=== PATIENT | female | born 1950 | race Caucasian/White ===

== ENCOUNTER 2017-08-18 11:28 | Outpatient (CLI) | payer MEDICARE, OTHER | END 2017-08-18 11:29 | disposition home or self-care (01) | LOC: BICMAMMO 11:28 | PROVIDERS: ATTEND Obstetrics & Gynecology | DX: Z12.31 Encounter for screening mammogram for malignant neoplasm of breast (principal); N64.89 Other specified disorders of breast | CPT/HCPCS: 77063; 77067 ==

== ENCOUNTER 2017-08-25 10:04 | Outpatient (CLI) | payer MEDICARE, OTHER | END 2017-08-25 10:05 | disposition home or self-care (01) | LOC: BICMAMMO 10:04 | PROVIDERS: ATTEND Obstetrics & Gynecology | DX: N64.89 Other specified disorders of breast (principal) | CPT/HCPCS: 77065; G0279 ==

== ENCOUNTER 2017-10-01 15:12 | Outpatient (CLI) | payer MEDICARE, OTHER | END 2017-10-01 15:13 | disposition home or self-care (01) | LOC: BICRAD 15:12 | PROVIDERS: ATTEND Obstetrics & Gynecology | DX: R14.3 Flatulence (principal); R15.9 Full incontinence of feces | CPT/HCPCS: 74019 ==

== ENCOUNTER 2018-08-28 11:48 | Outpatient (CLI) | payer MEDICARE, OTHER ==
--- NOTE | 2018-08-28 12:47 | MMO ---
Bilateral MAMMO Bilat Screen [facility]. CLINICAL HISTORY: Patient is 68 years old and is seen for screening. The patient has no family history of breast cancer. The patient has no personal history of cancer. VIEWS: The views performed were: bilateral craniocaudal with tomosynthesis and bilateral mediolateral oblique with tomosynthesis. FILMS COMPARED: The present examination has been compared to prior imaging studies performed at [facility] on 08/14/2015, 08/14/2016, 08/18/2017 and 08/25/2017. MAMMOGRAM FINDINGS: There are scattered fibroglandular densities. There are stable benign appearing calcifications seen in both breasts. There are no suspicious masses, suspicious calcifications, or new areas of architectural distortion. IMPRESSION: THERE IS NO MAMMOGRAPHIC EVIDENCE OF MALIGNANCY. A ROUTINE FOLLOW-UP MAMMOGRAM IN 1 YEAR IS RECOMMENDED. THE RESULTS OF THIS EXAM WERE SENT TO THE PATIENT. ACR BI-RADS Category 2 - Benign finding MAMMOGRAPHY NOTE: 1. A negative mammogram report should not delay a biopsy if a dominant of clinically suspicious mass is present. 2. Approximately 10% to 15% of breast cancers are not detected by mammography. 3. Adenosis and dense breasts may obscure an underlying neoplasm.
== END 2018-08-28 11:49 | disposition home or self-care (01) ==
LOC: BICMAMMO 11:48
PROVIDERS: ATTEND Obstetrics & Gynecology
DX: Z12.31 Encounter for screening mammogram for malignant neoplasm of breast (principal)
CPT/HCPCS: 77063; 77067

== ENCOUNTER 2019-08-31 12:21 | Outpatient (CLI) | payer MEDICARE, OTHER ==
--- NOTE | 2019-08-31 13:52 | MMO ---
Bilateral MAMMO Bilat Screen [facility]. CLINICAL HISTORY: Patient is 69 years old and is seen for screening. The patient has no family history of breast cancer. The patient has no personal history of cancer. VIEWS: The views performed were: bilateral craniocaudal with tomosynthesis and bilateral mediolateral oblique with tomosynthesis. FILMS COMPARED: The present examination has been compared to prior imaging studies performed at [facility] on 08/14/2016, 08/18/2017, 08/25/2017 and 08/28/2018. This study has been interpreted with the assistance of computer-aided detection. MAMMOGRAM FINDINGS: There are scattered fibroglandular densities. There are stable benign appearing calcifications seen in both breasts. There are no suspicious masses, suspicious calcifications, or new areas of architectural distortion. IMPRESSION: THERE IS NO MAMMOGRAPHIC EVIDENCE OF MALIGNANCY. A ROUTINE FOLLOW-UP MAMMOGRAM IN 1 YEAR IS RECOMMENDED. THE RESULTS OF THIS EXAM WERE SENT TO THE PATIENT. ACR BI-RADS Category 2 - Benign finding MAMMOGRAPHY NOTE: 1. A negative mammogram report should not delay a biopsy if a dominant of clinically suspicious mass is present. 2. Approximately 10% to 15% of breast cancers are not detected by mammography. 3. Adenosis and dense breasts may obscure an underlying neoplasm. Reported by: CHACHA SAM MD Electonically Signed: [id number]
== END 2019-08-31 12:22 | disposition home or self-care (01) ==
LOC: BICMAMMO 12:21
PROVIDERS: ATTEND Obstetrics & Gynecology
DX: Z12.31 Encounter for screening mammogram for malignant neoplasm of breast (principal)
CPT/HCPCS: 77063; 77067

== ENCOUNTER 2020-09-05 09:41 | Outpatient (CLI) | payer MEDICARE, OTHER | END 2020-09-05 09:42 | disposition home or self-care (01) | LOC: BICMAMMO 09:41 | PROVIDERS: ATTEND Obstetrics & Gynecology | DX: Z12.31 Encounter for screening mammogram for malignant neoplasm of breast (principal) | CPT/HCPCS: 77063; 77067 ==

== ENCOUNTER 2021-09-06 12:55 | Outpatient (CLI) | payer MEDICARE, OTHER | END 2021-09-06 12:56 | disposition home or self-care (01) | LOC: BICMAMMO 12:55 | PROVIDERS: ATTEND Obstetrics & Gynecology | DX: Z12.31 Encounter for screening mammogram for malignant neoplasm of breast (principal); N64.89 Other specified disorders of breast | CPT/HCPCS: 77063; 77067 ==

== ENCOUNTER 2021-09-14 09:51 | Outpatient (CLI) | payer MEDICARE, OTHER | END 2021-09-14 09:52 | disposition home or self-care (01) | LOC: BICMAMMO 09:51 | PROVIDERS: ATTEND Obstetrics & Gynecology | DX: R92.2 Inconclusive mammogram (principal) | CPT/HCPCS: 76642; 77065; G0279 ==

== ENCOUNTER 2022-03-19 09:42 | Outpatient (CLI) | payer MEDICARE, OTHER | END 2022-03-19 09:43 | disposition home or self-care (01) | LOC: BICMAMMO 09:42 | PROVIDERS: ATTEND Obstetrics & Gynecology | DX: R92.8 Other abnormal and inconclusive findings on diagnostic imaging of breast (principal) | CPT/HCPCS: 76642; 77065; G0279 ==

== ENCOUNTER 2022-03-26 10:24 | Outpatient (CLI) | payer MEDICARE, OTHER | END 2022-03-26 10:25 | disposition home or self-care (01) | LOC: BICMAMMO 10:24 | PROVIDERS: ATTEND Family Medicine | DX: M85.88 Other specified disorders of bone density and structure, other site (principal) | CPT/HCPCS: 77080 ==

== ENCOUNTER 2023-02-14 14:18 | Outpatient (CLI) | payer MEDICARE, OTHER | END 2023-02-14 14:19 | disposition home or self-care (01) | LOC: BICMAMMO 14:18 | PROVIDERS: ATTEND Obstetrics & Gynecology | DX: R92.8 Other abnormal and inconclusive findings on diagnostic imaging of breast (principal); N64.89 Other specified disorders of breast | CPT/HCPCS: 76642; 77065; G0279 ==

== ENCOUNTER 2023-08-18 13:57 | Outpatient (CLI) | payer MEDICARE, OTHER | END 2023-08-18 13:58 | disposition home or self-care (01) | LOC: BICMAMMO 13:57 | PROVIDERS: ATTEND Obstetrics & Gynecology | DX: R92.8 Other abnormal and inconclusive findings on diagnostic imaging of breast (principal) | CPT/HCPCS: 76642; 77066; G0279 ==

== ENCOUNTER 2025-01-18 13:19 | Outpatient (CLI) | payer MEDICARE, OTHER ==
[2025-01-18 14:53] LABS: #Basophils Less than 0.03 10x3/uL (0.0-0.2); #Eosinophils 0.07 10x3/uL (0.0-0.7); #Monocytes 0.70 10x3/uL (0.11-0.59); #Neutrophils 5.04 10x3/uL (1.40-6.50); %Basophils 0.3 % (0.0-1.0); %Eosinophils 1.0 % (0.0-10.0); %Lymphocytes 15.9 % (21.0-51.0); %Monocytes 10.1 % (0.0-10.0); %Neutrophils 72.6 % (42.0-75.0); Hematocrit 41.2 % (36.0-47.0); Hemoglobin 13.2 g/dL (12.0-16.0); Mean Corpuscular Hemoglobin 29.9 pg (27.0-31.0); Mean Corpuscular Volume 93.4 fL (78.0-98.0); Platelet Count 171 10x3/uL (130-400); Red Blood Cell (RBC) Count 4.41 mill/uL (4.20-5.40); White Blood Cell (WBC) Count 6.94 10x3/uL (4.8-10.8)
[2025-01-18 15:07] LABS: INR-International Normal Ratio 1.1; Prothrombin Time 14.1 sec (12.0-14.7)
[2025-01-18 15:20] LABS: Anion Gap 14 mmol/L (10-20); BUN (Urea Nitrogen) 51 mg/dL (9.8-20.1); Calc. Creatinine Clearance 0 mL/min (70-130); Calcium 9.3 mg/dL (7.8-10.44); Carbon Dioxide 29 mmol/L (23-31); Chloride 101 mmol/L (98-107); Glucose 154 mg/dL (83-110); Potassium 4.2 mmol/L (3.5-5.1); Sodium 140 mmol/L (136-145)
== END 2025-01-18 13:20 | disposition home or self-care (01) ==
LOC: LABBT 13:19
PROVIDERS: ATTEND Orthopaedic Surgery Hand Surgery
DX: Z01.818 Encounter for other preprocedural examination (principal); M18.12 Unilateral primary osteoarthritis of first carpometacarpal joint, left hand
CPT/HCPCS: 80048; 85025; 85610; 87081; 93005; 93010

== ENCOUNTER 2025-01-21 09:09 | Day surgery (SDC) | payer MEDICARE, OTHER ==
[2025-01-18 13:34] VITALS: BMI 31.3
[2025-01-21] MEDS ORDERED: Ropivacaine 0.2% HCl/PF 20 ML ONE (12:34)
[2025-01-21] MEDS ORDERED: Ropivacaine 0.5% HCl/PF (150 MG/30 ML VIAL) ONE (12:34)
[2025-01-21] MEDS ORDERED: PROPOFOL 0 ML ONE (12:37)
[2025-01-21] MEDS ORDERED: Lidocaine 1% PF 5 ML VIAL ONE (12:37)
[2025-01-21] MEDS ORDERED: Ondansetron PF 4 MG/2 ML Vial ONE (12:37)
[2025-01-21] MEDS ORDERED: fentaNYL PF 100 MCG/2 ML SYRINGE ONE (12:37)
[2025-01-21] MEDS ORDERED: Bacitracin Zinc Ointment 30 gm TUBE ONE (12:38)
== END 2025-01-21 13:45 | disposition short-term general hospital (02) ==
LOC: SDC 09:09
PROVIDERS: ATTEND Orthopaedic Surgery Hand Surgery
DX: M18.12 Unilateral primary osteoarthritis of first carpometacarpal joint, left hand (principal); Z53.8 Procedure and treatment not carried out for other reasons; M77.8 Other enthesopathies, not elsewhere classified; I10 Essential (primary) hypertension; E11.9 Type 2 diabetes mellitus without complications; Z95.5 Presence of coronary angioplasty implant and graft; Z98.41 Cataract extraction status, right eye; Z98.42 Cataract extraction status, left eye; Z90.710 Acquired absence of both cervix and uterus; Z90.89 Acquired absence of other organs; Z88.0 Allergy status to penicillin; Z88.8 Allergy status to other drugs, medicaments and biological substances; Z79.84 Long term (current) use of oral hypoglycemic drugs; Z79.899 Other long term (current) drug therapy
CPT/HCPCS: J2795 ×2; J2405; J2704; J3010

== ENCOUNTER 2025-02-02 10:44 | Day surgery (SDC) | payer MEDICARE, OTHER ==
[2025-02-01 15:39] VITALS: BMI 30.9
[2025-02-02] MEDS ORDERED: Bacitracin Zinc Ointment 30 gm TUBE ONE (12:48)
[2025-02-02] MEDS ORDERED: Thrombin 5000 UNITS/5 ML VIAL ONE (12:48)
[2025-02-02] MEDS ORDERED: Ropivacaine 0.5% HCl/PF (150 MG/30 ML VIAL) ONE (13:10)
[2025-02-02] MEDS ORDERED: Ropivacaine 0.2% HCl/PF 20 ML ONE (13:10)
[2025-02-02] MEDS ORDERED: Vancomycin 1 GM/200 ML (FROZEN) BAG ONE (13:15)
[2025-02-02] MEDS ORDERED: Famotidine/PF 20 mg/2ml Vial ONE (13:33)
[2025-02-02] MEDS ORDERED: Lidocaine 1% PF 5 ML VIAL ONE (13:35)
[2025-02-02] MEDS ORDERED: fentaNYL PF 100 MCG/2 ML SYRINGE ONE (13:35)
[2025-02-02] MEDS ORDERED: SUCCINYLCHOLINE/SOD CL,ISO/PF 200 MG/10 ML SYRINGE FS ONE (13:36)
[2025-02-02] MEDS ORDERED: Glycopyrrolate 0.2 MG/ML 5 ML SYRINGE ONE (13:49)
[2025-02-02] MEDS ORDERED: PROPOFOL 200 MG/20 ML VIAL ONE (13:54)
[2025-02-02] MEDS ORDERED: Ondansetron PF 4 MG/2 ML Vial ONE (13:54)
[2025-02-02] MEDS ORDERED: Rocuronium Bromide 10 MG/ML (10ML VIAL) ONE (14:11)
[2025-02-02] MEDS ORDERED: SUGAMMADEX SODIUM 200 MG/2 ML VIAL ONE (17:10)
== END 2025-02-02 19:00 | disposition home or self-care (01) ==
LOC: SDC 10:44
PROVIDERS: ATTEND Orthopaedic Surgery Hand Surgery
PROC: 0RQ Upper Joints, Repair (ICD-10-PCS; principal; 2025-02-02)
DX: M18.12 Unilateral primary osteoarthritis of first carpometacarpal joint, left hand (principal); M19.042 Primary osteoarthritis, left hand; M77.8 Other enthesopathies, not elsewhere classified; E11.9 Type 2 diabetes mellitus without complications; I10 Essential (primary) hypertension; Z88.0 Allergy status to penicillin; Z90.710 Acquired absence of both cervix and uterus; Z79.899 Other long term (current) drug therapy
CPT/HCPCS: 25448; 26516; 64415; 73130; C1894; J0665; J1100; J1308; J2405; J2704; J2795 ×2; J3010; J3373